=== PATIENT | female | born 1980 | race African-American/Black ===

== ENCOUNTER 2022-11-23 17:15 | Emergency (ER) | payer OTHER ==
--- NOTE | 2022-11-23 17:18 | ED ---
General Adult HPI - General Source: RN notes reviewed <Gayle Quinn - Last Filed: 11/23/22 17:16> <Devin Glass - Last Filed: 11/23/22 22:22> - General Stated complaint: withdrawls Time Seen by Provider: 11/23/22 17:16 - History of Present Illness Initial comments: 42-year-old -[place] female with a past medical history of opiate abuse presents to the [facility] emergency department with a chief complaint of withdrawal. Patient is currently residing and [place] for opioid withdrawal. Last known uses actually 2 days ago. She is complaining of accompanied symptoms of nausea and vomiting (Gayle Quinn) 42-year-old female presents to the ED with the chief complaint of heroin withdrawal. History as above. Additionally patient notes symptoms of nausea, vomiting and diarrhea started yesterday. Nonbloody emesis, nonbloody diarrhea. Denies abdominal pain. Denies chest pain. No other complaints. (Devin Glass) - Related Data Allergies Allergy/AdvReac Type Severity Reaction Status Date / Time sulfamethoxazole Allergy Rash/Hives Verified 11/23/22 17:44 [From Bactrim] trimethoprim [From Bactrim] Allergy Rash/Hives Verified 11/23/22 17:44 Review of Systems ROS Other: All systems not noted in ROS Statement are negative. <Gayle Quinn - Last Filed: 11/23/22 17:16> ROS Other: All systems not noted in ROS Statement are negative. <Devin Glass - Last Filed: 11/23/22 22:22> ROS Statement: Those systems with pertinent positive or pertinent negative responses have been documented in the HPI. General Exam <Gayle Quinn - Last Filed: 11/23/22 17:16> Limitations: no limitations General appearance: alert Head exam: Present: atraumatic, normocephalic Eye exam: Present: normal appearance ENT exam: Present: mucous membranes moist Respiratory exam: Present: normal lung sounds bilaterally Cardiovascular Exam: Present: regular rate, normal rhythm GI/Abdominal exam: Present: soft Neurological exam: Present: alert, oriented X3 Skin exam: Present: warm, dry <Devin Glass - Last Filed: 11/23/22 22:22> - General Exam Comments Initial Comments: Visual Physical Exam Vital signs reviewed General: Well-appearing, nontoxic, no acute distress. Head: Normocephalic, atraumatic Eyes: PERRLA, EOMI ENT: Airway patent Chest: Nonlabored breathing Skin: No visual rash, normal skin tone Neuro: Alert and oriented 3 Musculoskeletal: No gross abnormalities (Gayle Quinn) Course Vital Signs 11/23/22 11/23/22 11/23/22 17:39 19:17 20:56 Temperature 98 F Pulse Rate 90 81 68 Respiratory 20 18 18 Rate Blood Pressure 172/120 213/117 193/139 O2 Sat by Pulse 99 92 L Oximetry 11/23/22 11/23/22 21:35 21:54 Temperature Pulse Rate Respiratory 18 Rate Blood Pressure 189/139 177/102 O2 Sat by Pulse Oximetry Medical Decision Making - Lab Data Result diagrams: 11/23/22 19:21 11/23/22 19:21 <Devin Glass - Last Filed: 11/23/22 22:22> - Medical Decision Making Was pt. sent in by a medical professional or institution (, PA, [employer], urgent care, hospital, or jail...) When possible be specific @ -[facility] Did you speak to anyone other than the patient for history (EMS, parent, family, police, friend...)? What history was obtained from this source @ -[No] Did you review nursing and triage notes (agree or disagree)? Why? @ -[I reviewed and agree with nursing and triage notes] Were old charts reviewed (outside hosp., previous admission, EMS record, old EKG, old radiological studies, urgent care reports/EKG's, jail records)? Report findings @ -[No old charts were reviewed] Differential Diagnosis (chest pain, altered mental status, abdominal pain women, abdominal pain men, vaginal bleeding, weakness, fever, dyspnea, syncope, headache, dizziness, GI bleed, back pain, seizure, CVA, palpatations, mental health, musculoskeletal)? @ -Hypertensive emergency, CVA, OK. This is not meant to be an all-inclusive list. EKG interpreted by me (3pts min.). @ -[As above] X-rays interpreted by me (1pt min.). @ -[None done] CT interpreted by me (1pt min.). @ -[None done] U/S interpreted by me (1pt. min.). @ -[None done] What testing was considered but not performed or refused? (CT, X-rays, U/S, labs)? Why? @ -[None] What meds were considered but not given or refused? Why? @ -[None] Did you discuss the management of the patient with other professionals (marito gama i.e. , PA, [employer], lab, RT, psych nurse, social media sr strategy manager, care connector, teacher, security control room officer, family preservation caseworker)? Give summary @ -[No] Was smoking cessation discussed for >3mins.? @ -[No] Was critical care preformed (if so, how long)? @ -[No] Were there social determinants of health that impacted care today? How? (Homelessness, low income, unemployed, alcoholism, drug addiction, transport ation, low edu. Level, literacy, decrease access to med. care, usp, rehab)? @ -[No] Was there de-escalation of care discussed even if they declined (Discuss DNR or withdrawal of care, Hospice)? DNR status @ -[No] What co-morbidities impacted this encounter? (DM, HTN, Smoking, COPD, CAD, Cancer, CVA, ARF, Chemo, Hep., AIDS, mental health diagnosis, sleep apnea, morbid obesity)? @ -[None] Was patient admitted / discharged? Hospital course, mention meds given and route, prescriptions, significant lab abnormalities, going to OR and other pertinent info. @ -Discharged. Laboratory studies unremarkable. Patient provided IV fluids, Compazine, clonidine, hydralazine with improvement of symptoms. Patient discharged in stable condition. Undiagnosed new problem with uncertain prognosis? @ -[No] Drug Therapy requiring intensive monitoring for toxicity (Heparin, Nitro, Insulin, Cardizem)? @ -[No] Were any procedures done? @ -[No] Diagnosis/symptom? @ -Heroin withdrawal Acute, or Chronic, or Acute on Chronic? @ -Acute Uncomplicated (without systemic symptoms) or Complicated (systemic symptoms)? @ -Uncomplicated Side effects of treatment? @ -[No] Exacerbation, Progression, or Severe Exacerbation? @ -[No] Poses a threat to life or bodily function? How? (Chest pain, [place], [place], pneumonia, PE, COPD, DKA, ARF, appy, cholecystitis, CVA, Diverticulitis, Homicidal, Suicidal, threat to staff... and all critical care pts) @ -[No] (Devin Glass) - Lab Data Lab Results 11/23/22 11/23/22 Range/Units 19:21 19:21 WBC 5.5 (3.8-10.6) k/uL RBC 5.10 (3.80-5.40) m/uL Hgb 11.7 (11.4-16.0) gm/dL Hct 39.6 (34.0-46.0) % MCV 77.6 L (80.0-100.0) fL MCH 22.8 L (25.0-35.0) pg MCHC 29.4 L (31.0-37.0) g/dL RDW 16.7 H (11.5-15.5) % Plt Count 251 (150-450) k/uL MPV 8.9 Neutrophils % 86 % Lymphocytes % 9 % Monocytes % 3 % Eosinophils % 1 % Basophils % 0 % Neutrophils # 4.7 (1.3-7.7) k/uL Lymphocytes # 0.5 L (1.0-4.8) k/uL Monocytes # 0.2 (0-1.0) k/uL Eosinophils # 0.1 (0-0.7) k/uL Basophils # 0.0 (0-0.2) k/uL Hypochromasia Marked Anisocytosis Slight Microcytosis Slight Sodium 134 L (137-145) mmol/L Potassium 3.6 (3.5-5.1) mmol/L Chloride 102 (98-107) mmol/L Carbon Dioxide 20 L (22-30) mmol/L Anion Gap 12 mmol/L BUN 10 (7-17) mg/dL Creatinine 0.52 (0.52-1.04) mg/dL Est GFR (CKD-EPI)AfAm >90 (>60 ml/min/1.73 sqM) Est GFR (CKD-EPI)NonAf >90 (>60 ml/min/1.73 sqM) Glucose 109 H (74-99) mg/dL Calcium 9.2 (8.4-10.2) mg/dL Phosphorus 3.1 (2.5-4.5) mg/dL Magnesium 1.9 (1.6-2.3) mg/dL Total Bilirubin 0.8 (0.2-1.3) mg/dL AST 27 (14-36) U/L ALT 18 (4-34) U/L Alkaline Phosphatase 113 (38-126) U/L Creatine Kinase 197 H (30-135) U/L Total Protein 7.8 (6.3-8.2) g/dL Albumin 4.4 (3.5-5.0) g/dL Salicylates <1.0 mg/dL Acetaminophen <10.0 ug/mL - EKG Data EKG Comments: EKG shows sinus rhythm at [address] and T-wave changes. [place] 155, QRS 97, QT/QTc 397/405. (Devin Glass) Disposition <Gayle Quinn - Last Filed: 11/23/22 17:16> Is patient prescribed a controlled substance at d/c from ED?: No Time of Disposition: 22:22 <Devin Glass - Last Filed: 11/23/22 22:22> Clinical Impression: Heroin withdrawal Disposition: HOME SELF-CARE Condition: Good Referrals: None,Stated [Primary Care Provider] - 1-2 days
[2022-11-23] MEDS ORDERED: cloNIDine HCL 0.1 MG TAB PO STA (18:21)
[2022-11-23] MEDS ORDERED: SODIUM CHLORIDE 0.9% 1,000 ML IV STA (18:21)
[2022-11-23] MEDS ORDERED: PROCHLORPERAZINE INJ 10 MG/2 ML VIAL IVP STA ×2 (18:21→21:31)
[2022-11-23] MEDS ORDERED: cloNIDine 0.1 MG/24HR PATCH TRANSDERM SCH (18:30)
[2022-11-23 19:35] LABS: Anisocytosis Slight; Basophils % (A) 0 %; Eosinophils # (A) 0.1 k/uL (0-0.7); Eosinophils % (A) 1 %; HCT 39.6 % (34.0-46.0); HGB 11.7 gm/dL (11.4-16.0); Hypochromasia Marked; Lymphocytes # (A) 0.5 k/uL (1.0-4.8); Lymphocytes % (A) 9 %; MCH 22.8 pg (25.0-35.0); MCHC 29.4 g/dL (31.0-37.0); MCV 77.6 fL (80.0-100.0); Mean Platelet Volume 8.9; Microcytosis Slight; Monocytes # (A) 0.2 k/uL (0-1.0); Monocytes % (A) 3 %; Neutrophils # (A) 4.7 k/uL (1.3-7.7); Neutrophils % (A) 86 %; Platelet Count 251 k/uL (150-450); RDW 16.7 % (11.5-15.5); WBC 5.5 k/uL (3.8-10.6)
[2022-11-23 19:46] LABS: ALT 18 U/L (4-34); AST 27 U/L (14-36); Acetaminophen <10.0 ug/mL; African American GFR (CKD) >90 (>60 ml/min/1.73 sqM); Albumin 4.4 g/dL (3.5-5.0); Alkaline Phosphatase 113 U/L (38-126); Anion Gap 12 mmol/L; Blood Urea Nitrogen 10 mg/dL (7-17); Calcium 9.2 mg/dL (8.4-10.2); Carbon Dioxide 20 mmol/L (22-30); Chloride 102 mmol/L (98-107); Creatine Kinase 197 U/L (30-135); Glucose 109 mg/dL (74-99); Magnesium 1.9 mg/dL (1.6-2.3); Non-African American GFR(CKD) >90 (>60 ml/min/1.73 sqM); Phosphorus 3.1 mg/dL (2.5-4.5); Potassium 3.6 mmol/L (3.5-5.1); Salicylate <1.0 mg/dL; Sodium 134 mmol/L (137-145); Total Bilirubin 0.8 mg/dL (0.2-1.3); Total Protein 7.8 g/dL (6.3-8.2)
[2022-11-23] MEDS ORDERED: hydrALAZINE HCL 20 MG/ML 1 ML VIAL IVP STA (21:09)
[2022-11-23] MEDS ORDERED: ONDANSETRON 4 MG ODT STARTER PACK 2 TAB BTL PO STA (22:21)
[2022-11-23 23:04] VITALS: PULSE 104
[2022-11-23 23:33] VITALS: BP 176/105; RESP 20; TEMP 99
== END 2022-11-24 00:12 | disposition home or self-care (01) ==
LOC: EC 17:15
DX: F11.23 Opioid dependence with withdrawal (principal); Z88.1 Allergy status to other antibiotic agents; Z88.2 Allergy status to sulfonamides
CPT/HCPCS: 36415; 93005; 80053; 82550; 83735; 84100; 85025; 80143; 80179; 99284; 96374; 96375; 96376; 96361 ×4; J0360; J0780; S0119